=== PATIENT | female | born 1995 | race Caucasian/White ===

== ENCOUNTER → 2017-06-28 | Outpatient (CLI) | payer MEDICAID ==
--- NOTE | 2017-06-28 13:26 | Diagnostic Imaging Report ---
PROCEDURE: MRI left joint lower extremity without contrast. TECHNIQUE: Multiplanar, multisequence non contrast-enhanced MRI of the left lower extremity was accomplished. INDICATION: Knee pain. Reported history of vitamin deficiency with multiple prior knee surgeries. 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 FINDINGS: There is susceptibility artifact related to hardware within the proximal tibia which is reportedly performed for prior osteotomies related to history of rickets. There is also a screw demonstrated within the proximal fibular head. Allowing for artifact related to this hardware, there is no evidence of marrow signal abnormality to suggest edema. There is, however, a large osteochondral defect demonstrated involving the medial femoral condyle which measures 1 cm transverse x 1.2 cm AP. This appears to largely be a subchondral fracture with no definitive focal gap within the cartilage. The morphology of the medial and lateral menisci appears appropriate. The posterior cruciate ligament is normal. The ACL is not evident and is likely chronically torn. The medial and lateral collateral ligaments are normal. There is no significant joint effusion. The patellar retinaculum is intact. Quadriceps and patellar tendons appear normal. IMPRESSION: 1. Susceptibility artifact is demonstrated related to hardware related to osteotomies for reported history of rickets. There is also a screw demonstrated within the fibular head. 2. 10 x 12 mm osteochondral injury involving the medial femoral condyle. This may be chronic as there is no significant surrounding edema. There is no focal cartilaginous defect or gap. 3. The anterior cruciate ligament is not evident. 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 Dictated by: Dictated on workstation # [id number]
== END ==
LOC: RAD 08:49
PROVIDERS: ATTEND Nurse Practitioner
DX: S83.272A Complex tear of lateral meniscus, current injury, left knee, initial encounter (principal); Z87.39 Personal history of other diseases of the musculoskeletal system and connective tissue; Z98.890 Other specified postprocedural states; X58.XXXA Exposure to other specified factors, initial encounter; Y99.8 Other external cause status
CPT/HCPCS: 73721